=== PATIENT | female | born 1985 | race Asian ===

== ENCOUNTER 2018-08-08 16:35 | Inpatient (IN) | payer OTHER ==
[2018-08-08] MEDS ORDERED: METHYLERGONOVINE 0.2 MG INJ IM (17:00)
[2018-08-08] MEDS ORDERED: MISOPROSTOL 200 MCG TAB PR (17:00)
[2018-08-08] MEDS ORDERED: BUTORPHANOL 2 MG INJ IV (17:00)
[2018-08-08] MEDS ORDERED: CARBOPROST 250 MCG INJ IM (17:00)
[2018-08-08] MEDS ORDERED: IBUPROFEN 600 MG TAB PO (17:00)
[2018-08-08] MEDS ORDERED: LIDOCAINE 1% (MPF) 30 ML INJ INJ (17:00)
[2018-08-08] MEDS ORDERED: OXYTOCIN 30 UNITS/LR 500 ML IV ×2 (17:00)
[2018-08-08] MEDS: MINERAL OIL LIGHT 10 ML VIAL TOP (17:30)
[2018-08-08 17:56] LABS: ADD MAN DIFF? NO
[2018-08-08] MEDS: LACTATED RINGER'S 1,000 ML IV ×2 (17:57→19:09)
[2018-08-08 17:59] LABS: BASOPHILS % 0.3 % (0.0-2.0); EOSINOPHILS % 0.3 % (0.0-7.0); HEMATOCRIT 36.2 % (37.0-47.0); HEMOGLOBIN 12.3 g/dl (12.0-16.0); LYMPHOCYTES # 1.1 10^3/ul (0.8-2.9); LYMPHOCYTES % 9.6 % (15.0-51.0); MEAN CORPUSCULAR HEMOGLOBIN 30.1 pg (29.0-33.0); MEAN CORPUSCULAR VOLUME 88.7 fl (82.0-101.0); MEAN PLATELET VOLUME 11.5 fl (7.4-10.4); MONOCYTE # 0.6 10^3/ul (0.3-0.9); NEUTROPHIL # 9.9 10^3/ul (1.6-7.5); NEUTROPHILS % 83.8 % (39.0-77.0); PLATELET COUNT 214 10^3/UL (140-415); RED BLOOD COUNT 4.08 10^6/ul (4.20-5.40); RED CELL DISTRIBUTION WIDTH 13.1 % (11.5-14.5)
[2018-08-08 17:59] LABS: WHITE BLOOD COUNT 11.8 10^3/ul (4.8-10.8)
[2018-08-08 18:18] LABS: INR 0.85; PROTIME 11.7 Sec (11.9-14.9); PT RATIO 0.9
[2018-08-08 18:57] LABS: HEPATITIS B SURFACE ANTIGEN POSITIVE (NEGATIVE)
[2018-08-08] MEDS ORDERED: HYDROmorphONE 0.5 MG/0.5 ML SYG IV ×2 (19:00)
[2018-08-08] MEDS ORDERED: NALOXONE (0.4 MG/ML) INJ IV (19:00)
[2018-08-08] MEDS ORDERED: DIPHENHYDRAMINE 50 MG INJ IV (19:00)
[2018-08-08] MEDS ORDERED: ROPIVACAINE 0.2% 100ML BAG EPI (19:00)
[2018-08-08] MEDS: AMPICILLIN 2 GM/NS (PMX) 100 ML IV (23:08)
[2018-08-09] MEDS: ONDANSETRON 4 MG INJ IV (00:34)
[2018-08-09] MEDS ORDERED: PHENYLephrine (100 MCG/ML) 10ML SYG (01:53)
[2018-08-09] MEDS ORDERED: FENTAnyl 50 MCG/ML VIAL (02:03)
[2018-08-09] MEDS ORDERED: morphine SULFATE/PF (10 MG/10 ML) INJ (02:18)
[2018-08-09 02:21] LABS: CBV Oxygen Sat 23.5 mmHG; MODE ROOM AIR; MetHgb Cord Venous 2.1 %; Site CORD
[2018-08-09 02:23] LABS: CBV Base Excess -9.5 mmol/L; CBV COHb 0.3 %; CBV Total Hemglobin 14.8 g/dl; Cord Blood Venous AADO2 50.2 mmHg; Cord Blood Venous pO2 11.9 mmHG (15.0-45.0); Fraction OxyHgb Cord Venous 13.9 %
[2018-08-09] MEDS ORDERED: HYDROmorphONE 1 MG/5 ML IV SYRINGE IV ×3 (03:00)
[2018-08-09] MEDS ORDERED: FENTAnyl 50 MCG/ML VIAL IV ×3 (03:00)
[2018-08-09] MEDS ORDERED: DIPHENHYDRAMINE 50 MG INJ IV ×2 (03:00→19:00)
[2018-08-09] MEDS ORDERED: METOCLOPRAMIDE 10 MG INJ IV (03:00)
[2018-08-09] MEDS ORDERED: ONDANSETRON 4 MG INJ IV ×2 (03:00→05:30)
[2018-08-09] MEDS: AMPICILLIN 1 GM/NS (PMX) 50 ML IV ×2 (03:00→08:07)
[2018-08-09] MEDS ORDERED: ALBUTEROL 0.083% (NEB) 2.5 MG/3 ML AMP HHN (03:00)
[2018-08-09] MEDS ORDERED: KETOROLAC 30 MG INJ IV (03:00)
[2018-08-09] MEDS: OXYTOCIN 30 UNITS/LR 500 ML IV (03:11)
[2018-08-09] MEDS: KETOROLAC 30 MG INJ IV ×2 (03:19→22:20)
[2018-08-09] MEDS ORDERED: CARBOPROST 250 MCG INJ IM (05:30)
[2018-08-09] MEDS ORDERED: OXYTOCIN 30 UNITS/LR 500 ML IV (05:30)
[2018-08-09] MEDS ORDERED: ZOLPIDEM 5 MG TAB PO (05:30)
[2018-08-09] MEDS ORDERED: METHYLERGONOVINE 0.2 MG INJ IM (05:30)
[2018-08-09] MEDS ORDERED: MISOPROSTOL 200 MCG TAB PR (05:30)
[2018-08-09] MEDS: CEFAZOLIN 2 GM/50 ML (PMX) 50 ML IVPB ×3 (06:24→21:12)
[2018-08-09] MEDS ORDERED: CHLOROPROCAINE 3% (MPF) 20 ML INJ (07:00)
[2018-08-09] MEDS: LACTATED RINGER'S 1,000 ML IV (08:11)
[2018-08-09] MEDS: SENNA/DOCUSATE NA (8.6MG/50MG) TAB PO ×2 (08:43→21:12)
[2018-08-09 15:18] LABS: RAPID PLASMA REAGIN NONREACTIVE (NR)
[2018-08-09] MEDS ORDERED: OXYCODONE/ACETAMINOPHEN (5/325) TAB PO (19:00)
[2018-08-09] MEDS: IBUPROFEN 600 MG TAB PO (23:58)
[2018-08-10 00:12] LABS: HEPATITIS B SURFACE ANTIGEN REACTIVE (NON-REACTIVE)
[2018-08-10] MEDS: CEFAZOLIN 2 GM/50 ML (PMX) 50 ML IVPB (05:24)
[2018-08-10] MEDS: LANOLIN HPA 1 PKT TOP ×2 (05:24→11:50)
[2018-08-10] MEDS: IBUPROFEN 600 MG TAB PO ×3 (05:24→17:36)
[2018-08-10] MEDS: LACTATED RINGER'S 1,000 ML IV (05:32)
[2018-08-10 08:56] LABS: Arterial Cord Blood pCO2 70.5 mmHG (25-50); CBA Base Excess -8.5 mmol/L; CBA COHb 0.1 %; CBA Oxygen Sat 23.5 mmHG; CBA Total Hemglobin 15.2 g/dl; Cord Blood Arterial pO2 15.8 mmHG (15.0-45.0); MODE ROOM AIR; MetHgb Cord Arterial 2.1 %; Sample Type Blood venous; Site CORD
[2018-08-10 09:29] LABS: ADD MAN DIFF? NO
[2018-08-10 09:30] LABS: WHITE BLOOD COUNT 9.5 10^3/ul (4.8-10.8)
[2018-08-10 09:30] LABS: BASOPHILS % 0.4 % (0.0-2.0); EOSINOPHILS % 0.3 % (0.0-7.0); HEMATOCRIT 26.8 % (37.0-47.0); LYMPHOCYTES % 12.4 % (15.0-51.0); MEAN CORPUSCULAR HEMOGLOBIN 31.1 pg (29.0-33.0); MEAN CORPUSCULAR HGB CONC 33.6 g/dl (32.0-37.0); MEAN CORPUSCULAR VOLUME 92.7 fl (82.0-101.0); MEAN PLATELET VOLUME 11.6 fl (7.4-10.4); MONOCYTES % 5.7 % (0.0-11.0); NEUTROPHILS % 80.4 % (39.0-77.0); PLATELET COUNT 178 10^3/UL (140-415); RED BLOOD COUNT 2.89 10^6/ul (4.20-5.40); RED CELL DISTRIBUTION WIDTH 13.5 % (11.5-14.5)
[2018-08-10 09:31] LABS: LYMPHOCYTES # 1.2 10^3/ul (0.8-2.9); MONOCYTE # 0.5 10^3/ul (0.3-0.9); NEUTROPHIL # 7.6 10^3/ul (1.6-7.5)
[2018-08-10] MEDS: SENNA/DOCUSATE NA (8.6MG/50MG) TAB PO ×2 (09:36→20:44)
[2018-08-10] MEDS: OXYCODONE/ACETAMINOPHEN (5/325) TAB PO (22:55)
[2018-08-11] MEDS: IBUPROFEN 600 MG TAB PO ×3 (00:03→12:45)
[2018-08-11] MEDS: SILVER SULFADIAZINE 1% 25 GM CR TOP (09:00)
[2018-08-11] MEDS: SENNA/DOCUSATE NA (8.6MG/50MG) TAB PO (09:21)
[2018-08-11] MEDS: DIPHTH/TET/ACEL PERTUSS (ADULT) 0.5 ML VIAL IM* (15:47)
[2018-08-12] MEDS ORDERED: DIPHTH/TET/ACEL PERTUSS (ADULT) 0.5 ML VIAL IM* (09:00)
== END 2018-08-11 17:20 | disposition home or self-care (01) | DRG 788 ==
LOC: L-D 08-09 01:44 → OBT 16:35 → L-D 16:35 → PP1 08-09 05:06 → OBT 16:45 → L-D 16:45
PROVIDERS: Obstetrics & Gynecology
PROC: 10D00Z1 Extraction of Products of Conception, Low, Open Approach (ICD-10-PCS; principal; 2018-08-09)
DX: O76 Abnormality in fetal heart rate and rhythm complicating labor and delivery (principal); Z3A.39 39 weeks gestation of pregnancy; Z37.0 Single live birth
CPT/HCPCS: 36415; 36600; 62319; 72170; 82803; 85025; 85610; 85730; 86592; 86704; 86850; 86900; 86901; 87340; 88307; 90686; 90715; 99464; J2400